=== PATIENT | female | born 2000 ===

== ENCOUNTER 2021-11-01 06:22 | Outpatient (CLI) | payer MEDICAID, SELFPAY ==
--- NOTE | 2021-11-01 06:30 | US_ITS ---
WS: [id number] EARLY OBSTETRICAL ULTRASOUND (<14 WEEKS). HISTORY: Z34.90 - Encounter for supervision of normal COMPARISON: None available. Single intrauterine gestational sac is identified. Cardiac activity at 131 BPM. Alvan-rump length yudy sures 0.4 cm which corresponds to a gestation of 6w0d. Normal-appearing yolk sac and amnion demonstra piedad. No subchorionic hemorrhage. No free fluid. Small cyst associated with the RIGHT ovary. The cyst measures 2.5 x 2.9 x 3.2 cm. No free fluid. US/US OB <=14 wk fetus w transvag IMPRESSION: 1. Single intrauterine gestation of 6 weeks 0 days with an EDC of 06/27/2022. 2. Normal cardiac activity. 3. Small RIGHT ovarian cyst measures 2.5 x 2.9 x 3.2 cm.
== END 2021-11-01 06:23 | disposition home or self-care (01) ==
PROVIDERS: Visit Provider Obstetrics & Gynecology
DX: Z34.90 Encounter for supervision of normal pregnancy, unspecified, unspecified trimester (principal); Z3A.01 Less than 8 weeks gestation of pregnancy; N83.201 Unspecified ovarian cyst, right side
CPT/HCPCS: 76801; 76817

== ENCOUNTER → 2021-11-08 08:51 | Outpatient (BNVA) | payer MEDICAID, SELFPAY | PROVIDERS: Visit Provider Nurse Practitioner Women's Health | DX: N92.6 Irregular menstruation, unspecified (principal) | CPT/HCPCS: 81025 ==

== ENCOUNTER → 2021-12-09 09:10 | Outpatient (BNVA) | payer MEDICAID, SELFPAY | PROVIDERS: Visit Provider Obstetrics & Gynecology | DX: Z34.90 Encounter for supervision of normal pregnancy, unspecified, unspecified trimester (principal) | CPT/HCPCS: 80307; 81000; 84443; 85025; 86592; 86762; 86803; 86850; 86900; 87086; 87340; 87806 ==

== ENCOUNTER → 2022-01-11 10:26 | Outpatient (BNVA) | payer MEDICAID, SELFPAY | PROVIDERS: Visit Provider Obstetrics & Gynecology | DX: Z34.90 Encounter for supervision of normal pregnancy, unspecified, unspecified trimester (principal) | CPT/HCPCS: 81000; 87491; 87591; 87661; 88175 ==

== ENCOUNTER → 2023-12-11 10:13 | Outpatient (BNVA) | payer MEDICAID, SELFPAY | PROVIDERS: PCP Registered Nurse; Visit Provider Registered Nurse | DX: K59.00 Constipation, unspecified (principal) | CPT/HCPCS: 80053; 85025 ==

== ENCOUNTER 2024-01-15 08:22 | Day surgery (SDC) | payer MEDICAID, SELFPAY ==
[2024-01-15 08:34] VITALS: BP 130/89; PULSE 86; RESP 18; TEMP 36.7; O2SAT 99
[2024-01-15 08:36] LABS: OR HCG Qualitative Urine Negative (Negative)
[2024-01-15] MEDS: sodium chloride 0.9% 1,000 ML 30 ML IV (08:41)
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
--- NOTE | 2024-01-15 08:52 | W.PM.OPSUD ---
Surgery/Procedure H&P Update DATE OF PROCEDURE: January 15, 2024 DATE H&P PERFORMED: 12/13/23 H&P UPDATE INFORMATION: I have reviewed H&P completed within last 30 days, I have examined patient prior to procedure and No changes to prior documentation PREOP DIAGNOSIS: Hematochezia PLANNED PROCEDURE: Operation Date: 01/15/24 09:15 Proposed Procedures p Colonoscopy [id number], G0105, K92.1(Not Applicable) - Christian Cabrera MD
[2024-01-15 09:18] VITALS: BP 108/78; PULSE 91; RESP 18; O2SAT 95
[2024-01-15 09:31] VITALS: BP 114/77; PULSE 85; RESP 16; O2SAT 97
--- NOTE | 2024-01-15 10:10 | ANE.PACU2 ---
Inpatient post-anesthesia follow up: Airway intact: Yes Vital signs: Temperature 98.0 F Pulse Rate 85 Respiratory Rate 16 Blood Pressure 114/77 Pulse Oximetry 97 Oxygen Delivery Me thod Room Air Oxygen Flow Rate Fraction of Inspir ed Oxygen Hydration adequate: Yes Nausea and vomiting: No Pain level: 1 Mental status: Baseline
== END 2024-01-15 10:10 | disposition home or self-care (01) ==
PROVIDERS: Student in an Organized Health Care Education/Training Program; PCP Registered Nurse; Visit Provider Student in an Organized Health Care Education/Training Program
PROC: 0DJD8ZZ Inspection of Lower Intestinal Tract, Via Natural or Artificial Opening Endoscopic (ICD-10-PCS; CPT 45378; principal; 2024-01-15 09:15)
DX: K92.1 Melena (principal); K62.89 Other specified diseases of anus and rectum; R63.4 Abnormal weight loss; Z68.25 Body mass index [BMI] 25.0-25.9, adult; F17.200 Nicotine dependence, unspecified, uncomplicated
CPT/HCPCS: 45380; 81025; 88305; 88342; J2704; J7030